=== PATIENT | female | born 1960 | race Caucasian/White ===

== ENCOUNTER 2017-06-12 08:09 | Inpatient (IN) | payer OTHER ==
[~2017-06-12] VITALS: Ht 160 cm; Wt 69.5 kg
[2017-06-12 08:09] VITALS: BP 149/95; PULSE 74; RESP 17; O2SAT 100
[~2017-06-12 08:09] MED LIST: LACT10SO60 TUBE; Melatonin PO; PROP20TA5 PO; QUET25TA73 PO; RIFA550T3 PO
--- NOTE | 2017-06-12 08:12 | ED.REPORT ---
HPI-General Illness Date of Service Jun 12, 2017 ED Provider: Markell Barbara Patient is a 57 year old female with a hx of HTN, depression, Hep C, degenerative disc disease (previously on methadone), and alcoholic cirrhosis who presents to the ED via EMS s/p her called EMS stating she was more confused suddenly over the last 30 hrs ago. Pt reports she does not feel confused. Her only complaints are being generally weak and back pain. She denies diarrhea, chest pain, abdominal pain, or any other symptoms. Per , pt has been talking to people who are not there over the last 30 hours. She has also been experiencing insomnia and reports she re-arranged the house in a disorganized manner. He also reports she has been taking her clothes off all the time without knowing she is doing so. Her took pictures to show her what she was doing and she did not recognize herself doing these things. reports and pt condones that she has been have trouble speaking including word finding and forming words. She has also been short of breath and the describes her as a "funny breather". Patient reports her daughter gave her a "sleeping pill" 4 days ago and she doesn 't know what it was. Pt reports she last took her lactulose this morning. Nursing Notes Stated Complaint: ALTERED MENTAL STATUS Chief Complaint: General Complaint Nursing Notes Reviewed: Yes Allergies: Coded Allergies: No Known Allergies (Verified Allergy, Unknown, 06/12/17) Scheduled Buspirone (Buspirone) 10 Mg Tablet 20 MG PO TID Cyclobenzaprine (Cyclobenzaprine) 10 Mg Tablet 10 MG PO TID Gabapentin (Gabapentin) 600 Mg Tablet 1,200 MG PO TID Lactulose (Lactulose) 10 Gm/15 Ml Solution 15-30 ML PO BID-TID take just enough to produce 2-3 soft BMs daily Omeprazole (Omeprazole) 20 Mg Capsule.dr 20 MG PO DAILY Pramipexole Dihydrochloride (Pramipexole Dihydrochloride) 0.25 Mg Tablet 0.125 MG PO HS Propranolol HCl (Propranolol HCl) 20 Mg Tablet 40 MG PO BID Topiramate (Topiramate) 25 Mg Tablet 25 MG PO HS Venlafaxine (Venlafaxine) 75 Mg Tablet 75 MG PO DAILY Scheduled PRN Ibuprofen (Advil) 200 Mg Capsule 1-2 EACH PO TID PRN PRN For Pain General Time Seen by MD: 08:11 Chief Complaint Other (Confusion) Hx Obtained From: Patient Arrived By: Ambulance Sudden in Onset?: Yes Onset Occurred: 1 day ago (30 hours ago) Symptom Duration: Since onset Location: : Back Recent Healthcare: Recent doctor visit Past Medical History Past Medical History Notes: Last Hospital Admission from February 27, 2016 - Mar 19, 2016 for acute alcohol wth delirium with several complications Asked ED visit 03/24/2016 plan of restless legs Past Medical History 1. History of alcohol withdrawal with acute delirium 2. History of Tuberculosis, latent (See ID Consult 02/[address] Cordero, AF[employer] sputums negative, patient does not require isolation per ID) Treatment of latent TB was not recommended due to her ETOH Abuse 3. Methadone abuse 4. Severe malnutrition 5. history of Alcoholic hepatitis 6. history of positive C. Difficile 7. Cirrhosis likely secondary to alcoholic liver disease and hepatitis C. Chronic alcoholic pancreatitis 9. Left atrial enlargement on EKG, 10. History of Hepatitis C, therapy completed. Stable 11. Hypertension 12. History of Acute kidney injury, 13. History of MRSA positive screen 14. Alcohol use disorder 15. Polysubstance use disorder 16. Tobacco use disorder, chronic 17. recurrent pnuemonia 18. depression 19. insomnia 20. Degenerate disc disease previously on methadone 21. seizures 22. Recurrent UTI Reports: GERD Past Surgical History 1. Bilateral carpal tunnel repair. 2. KEHINDE with BSO. Family History Mother with alcohol use. Family history of drug abuse. Sister with hepatitis B. Smoking History Current Every Day Smoker Social History The patient is . She has 1 child of her own (38-year-old daughter). Patient has hx of drinking one 5th of bourbon daily. The patient smokes approximately 2 packs of cigarettes daily. She has a history of drug use including IV drug and precription drug abuse. Alcohol Use: In recovery Drug Use: IV drugs Other Social History: Good social support, , Local resident Ambulatory Status Independent Review of Systems +trouble speaking Full Review of Systems Constitutional: Reports: Weakness - generalized Respiratory: Reports: Shortness of breath Cardiovascular: Denies: Chest pain GI: Denies: Abdominal pain, Diarrhea Musculoskeletal: Reports: Back pain Neurologic: Reports: Confusion Psychiatric: Reports: Hallucinations, auditory, Hallucinations, visual, Insomnia Complete sys rev & neg: except as marked. Physical Exam Vital Signs Vital Signs Date Time Temp Pulse Resp B/P Pulse Ox O2 Delivery O2 Flow Rate FiO2 06/12/17 14:43 36.5 81 18 168/85 97 Room Air 06/12/17 14:40 81 18 168/85 97 Room Air 06/12/17 11:05 68 17 114/75 95 Room Air 06/12/17 08:09 36.5 74 17 149/95 100 Initial VS: Reviewed, Vital signs abnormal Head / Eyes: Atraumatic, Normocephalic Neck: Full range of motion Skin: Warm, Dry General/Constitutional: Awake, Alert, No acute distress Respiratory / Chest: Atraumatic, Breath sounds NL, Breath sounds = bilat, No respiratory distress Cardiovascular: Heart rate NL, Regular rhythm, Heart sounds NL Abdomen: Atraumatic, Soft, Non-tender, BS normoactive Back: No CVA tenderness Lumbar paraspinal muscle spasm that is worse on the right. Lower Extremity / Pelvis / MS: No edema Neurologic: Oriented X3, Speech NL Interpretation & Diagnostics Lab Results Interpretation Result Diagram: 06/12/17 1210 06/12/17 1210 Test 06/12/17 09:30 06/12/17 12:10 06/12/17 12:50 Urine Color Straw (YELLOW) Urine Appearance Hazy (CLEAR,HAZY) Urine pH 7.0 (5.0-8.0) Urine Specific [place] 1.005 (1.003-1.035) Urine Protein Negativemg/dL (NEG,TRACE) Urine Glucose (UA) Negativemg/dL (NEGATIVE) Urine Ketones Negativemg/dL (NEGATIVE) Urine Occult Blood Negative (NEGATIVE) Urine Nitrite Positive (NEGATIVE) Urine Bilirubin Negative (NEGATIVE) Urine Urobilinogen Normalmg/dL (NORMAL) Urine Leukocyte Esterase Moderate (NEGATIVE) Urine RBC 0-2/hpf (0-2) Urine WBC 6-10/hpf (0-5) Urine Epithelial Cells Occasional/hpf (NONE-MOD) Urine Crystals None seen (NONE SEEN) Urine Bacteria Many/hpf (NONE-FEW) Urine Hyaline Casts None/lpf (NONE) Urine Granular Casts None seen (NONE SEEN) Urine Waxy Casts None seen (NONE SEEN) Urine Red Blood Cell Casts None seen (NONE SEEN) Urine White Blood Cell Casts None seen (NONE SEEN) Urine Mucus None seen (None Seen) Urine Trichomonas None seen (NONE SEEN) Urine Yeast None (NONE SEEN) Urinalysis Comment None Urine Culture Reflexed Indicated White Blood Count 6.7th/mm3 (3.8-10.1) Red Blood Count 4.34mil/mm3 (3.90-5.20) Hemoglobin 14.2g/dL (12.0-15.6) Hematocrit 41.7% (35.0-46.0) Mean Corpuscular Volume 96.1fL (81-100) Mean Corpuscular Hemoglobin 32.7pg (27.0-35.0) Mean Corpuscular Hemoglobin Concent 34.1% (32.0-37.0) Red Cell Distribution Width 14.0% (12.3-15.4) Platelet Count 139bil/L (150-400) Neutrophils (%) (Auto) 48.7% (40-74) Lymphocytes (%) (Auto) 30.8% (14-46) Monocytes (%) (Auto) 11.9% (4-12) Eosinophils (%) (Auto) 7.0% (0-5) Basophils (%) (Auto) 1.0% (0-3) Sodium Level 145mEq/L (134-144) Potassium Level 4.0mEq/L (3.5-5.2) Chloride Level 109mEq/L (97-108) Carbon Dioxide Level 18mmol/L (18-29) Blood Urea Nitrogen 14mg/dL (6-24) Creatinine 0.83mg/dL (0.57-1.00) Estimat Glomerular Filtration Rate 101mL/min (>59) Glucose Level 105mg/dL (60-99) Calcium Level 9.7mg/dL (8.5-10.1) Total Bilirubin 1.0mg/dL (0.0-1.2) Aspartate Amino Transf (AST/SGOT) 28U/L (0-50) Alanine Aminotransferase (ALT/SGPT) 18U/L (0-32) Alkaline Phosphatase 95U/L (25-150) Troponin T 0.010ug/L (0.0-0.011) Total Protein 7.5g/dL (6.4-8.4) Albumin 4.4g/dL (3.4-5.0) Procalcitonin 0.03ng/mL (0.00-0.08) Ammonia 241ug/dL (18-53) ECG Interpretation ECG Interpretation: Sinus rate 68 no ischemia Time: 08:55 Interpreted by: ED physician X-Ray Chest Interpretation Chest Xray Interpretation: IMPRESSION: No acute disease. Dictated by: Oli Salgado M.D. on 06/12/2017 at 8:16 Approved by: Oli Salgado M.D. on 06/12/2017 at 8:17 View: Portable, 1 view Interpretation / Wet Read by: Interpret - Radiologist CT Head Interpretation IMPRESSION: No source of change in mental status is found. The study appears stable over time from February of last year. Dictated by: Mohinder Granger M.D. on 06/12/2017 at 9:24 Approved by: Mohinder Granger M.D. on 06/12/2017 at 9:57 Study: Head CT no contrast Interpretation / Wet Read by: Interpret - Radiologist Re-Eval/Medical Decision Med Decision/Clinical Course 57-year-old woman with history of hepatic encephalopathy. Not currently fully compliant with medication regimen at home. Her notes that 30 hours ago (very specifically noted time of first on mental status events) she has been acutely altered. Initially he thought that her daughter had given her some additional recreational medication. She was acutely confused, delirious. Seemed to clear for a brief period of time and then has worsened again. Given the exact timing of onset CT scan of the brain was done to make sure that there was no evidence of a stroke. There is no clinical evidence to support stroke. CT scan was unremarkable. Labs metabolic findings certainly can explain the altered mental status. Have recommended that she be admitted for lactulose and observation. In the past she's had such severe diarrhea from her lactulose that she hasn't been able to eat and drink and ended up with significant dehydration. Patient believes that she is well enough to go home and states that "I promise I will take my medications". points out that she has not been taking her medication which is how she got to the situation in the first place and is concerned with her ability to care for self and safety at home. He is explained to her that, in light of recommendation for admission to the hospital, he will not be taking her home at this time. Time of Eval: 13:50 Re-Evaluation/Progress Note: Discussed lab and imaging results. Discussed plan for admission. Patient does not want to stay but with described acute altered mental status changes and ammonia at 245, whe is not competent at this time to make that decision. agrees to and encourages the admission. He understands and agrees with plan. All questions addressed at this time. Consultation : Referral / Consult Name: Junito Crawley Consulted With: Hospitalist Call Returned at: 14:45 Oil Heater Installer: Will see patient, Agrees with eval, Agrees with plan, Accepts admit Note: Discussed pt's case. Accepts admit. Counseled Regarding: Diagnosis, Lab results, Need for admission Discharge & Departure Primary Impression: Acute hepatic encephalopathy Additional Impressions: Bladder infection Altered mental status Altered mental status type: unspecified Qualified Code: R41.82 - Altered mental status, unspecified Disposition: ADMITTED TO HOSPITAL Discharge Condition All VS Reviewed: Yes Condition: Stable Referrals: Mata Maier Attestation Portions of this note were transcribed by Hong Owens. I, Dr. Guillaume personally performed the history, physical exam and medical decision-making; I reviewed and confirmed the accuracy of the information in the transcribed note. Signed by: Dylan Fleming, 06/12/17 copies to: Mata Maier Shawna L MD Jun 12, 2017 08:11 HONG OWENS Jun 12, 2017 08:39
--- NOTE | 2017-06-12 09:19 | DRSVH ---
PROCEDURE: X-RAY CHEST ONE VIEW, PORTABLE ([id number]) INDICATIONS: altered mental status TECHNIQUE: One view of the chest was acquired. COMPARISON: [facility], CR, XR CHEST 1VW (PORTABLE), 03/17/2016, 0:52. FINDINGS: Surgical changes and devices: Surgical clips projecting in the left breast Lungs and pleura: No pleural effusions or pneumothorax. Lungs are clear. Mediastinum: Mediastinal contours appear normal. Heart size is normal. Bones and chest wall: No suspicious bony lesions. Overlying soft tissues appear unremarkable. Specialty Transformer Assembler codi left rib fractures IMPRESSION: No acute disease. Dictated by: Oli Salgado M.D. on 06/12/2017 at 8:16 Approved by: Oli Salgado M.D. on 06/12/2017 at 8:17
--- NOTE | 2017-06-12 09:59 | DRSVH ---
PROCEDURE: CT BRAIN WITHOUT CONTRAST ([id number]) INDICATIONS: acute change in mental status 30 hrs ago TECHNIQUE: Noncontrast 4.5 mm thick angled axial sections acquired from the foramen magnum to the vertex, with c oronal reformats. COMPARISON: [facility], CT, CT BRAIN WO CON, 03/02/2016, 9:56. FINDINGS: Image quality: Excellent. CSF spaces: Basal cisterns are patent. No extra-axial fluid collections. Ventricles are normal in size and shape. Brain: No midline shift. No intracranial masses or hemorrhage. Bui-white matter interface is norm al. Skull and face: Calvarium and visualized facial bones are intact, without suspicious lesions. Sinuses: Visualized sinuses and mastoids are clear. IMPRESSION: No source of change in mental status is found. The study appears stable over time from J une of last year. Dictated by: Mohinder Granger M.D. on 06/12/2017 at 9:24 Approved by: Mohinder Granger M.D. on 06/12/2017 at 9:57
[2017-06-12 10:32] LABS: APPEARANCE,URINE HAZY (CLEAR,HAZY); COLOR,URINE STRAW (YELLOW); OCCULT BLOOD,URINE NEGATIVE (NEGATIVE); UROBILINOGEN,URINE NORMAL (NORMAL)
[2017-06-12 11:05] VITALS: BP 114/75; PULSE 68; RESP 17; O2SAT 95
[2017-06-12 12:47] LABS: MONOCYTES % (AUTO) 11.9 % (4-12); Mean Corpuscular Hemoglobin 32.7 pg (27.0-35.0); Mean Corpuscular Volume 96.1 fL (81-100); NEUTROPHILS % (AUTO) 48.7 % (40-74); Platelet Count 139 bil/L (150-400)
[2017-06-12 12:50] LABS: TROPONIN T 0.01 ug/L (0.0-0.011)
[2017-06-12] MEDS ORDERED: cefTRIAXone Inj 2,000 MG in Dextrose 5% Minibag Plus 50 ML IV ONE (13:50)
[2017-06-12] MEDS ORDERED: Lactulose 20 Gm/30 mL 30 mL Syrup PO ONE (13:50)
[2017-06-12 14:40] VITALS: BP 168/85; PULSE 81; RESP 18; O2SAT 97
[2017-06-12] MEDS ORDERED: BUSP10TA2 PO (14:55)
[2017-06-12] MEDS ORDERED: OMEP20CA11 PO (14:55)
[2017-06-12] MEDS ORDERED: PRAM0.256 PO (15:00)
[2017-06-12] MEDS ORDERED: CYCL10TA9 PO (15:00)
[2017-06-12] MEDS ORDERED: GABA600T2 PO (15:00)
[2017-06-12] MEDS ORDERED: VENL75TA3 PO (15:00)
[2017-06-12] MEDS ORDERED: TOPI-59 PO (15:00)
[2017-06-12] MEDS ORDERED: LACT10SO PO (15:06)
[2017-06-12] MEDS ORDERED: IBUP200C11 PO (15:07)
[2017-06-12] MEDS ORDERED: 0.9% Sodium Chloride 1,000 ML IV SCH (15:13)
[2017-06-12] MEDS ORDERED: Polyethylene Glycol (PEG) 17 Gm Powder PO PRN (15:15)
[2017-06-12] MEDS ORDERED: Ondansetron 2 mg/mL 2 mL Inj IVPUSH PRN (15:15)
[2017-06-12] MEDS ORDERED: Alum-Mag Hydrox-Simeth 30 mL Suspension PO PRN (15:15)
[2017-06-12] MEDS ORDERED: Lactulose 20 Gm/30 mL 30 mL Syrup PO SCH (15:20)
[2017-06-12 15:33] VITALS: BP 154/71; PULSE 81; RESP 16; O2SAT 97
--- NOTE | 2017-06-12 16:00 | NUR ---
Admit to [facility] Pt arrived on [facility] at 1520 hrs from the ED. Alert and oriented x 3. Pain at 6/10 in her back (chronic) and hip. PIV in left hand red and tender, but patent. Pt is hard IV start due to prior IV drug use. All personal items sent with pt. Pt is current cigarette smoker. Applied nicotine patch. Administered IV antibiotic and lactulose (for elevated ammonia level). Spouse at the bedside. Care continues.
[2017-06-12] MEDS: cefTRIAXone Inj 2,000 MG in Dextrose 5% Minibag Plus 50 ML IV SCH (16:27)
[2017-06-12] MEDS: Heparin 5,000 Unit/mL Inj SUBQ SCH (16:37)
--- NOTE | 2017-06-12 17:45 | PCM.HPMED ---
Subjective Date of Service Jun 12, 2017 Primary Provider: Admitting Physician: Junito Crawley Primary Care Physician: Mata Maier DO Attending Physician: Junito Crawley Admit Status: From the Emergency Department, Admit to Red Team Chief Complaint: Altered mental status History of Present Illness: Ms. Chambers is a 57-year-old female with past medical history of hypertension , depression and hepatitis C degenerative disc disease (previously on methadone) , and alcoholic cirrhosis (sober 1 year) who presented to the ED via EMS after her called 911 secondary to behavioral abnormalities and mental status changes 1 day. Present during time of interview is patient's Dominick during interview. Per patient she states she knows that she has been doing a lot of strange things because she has been told that she has no specific recollection of these events. Per patient's and patient has not been taking her lactulose, he does not know why as she is the one who manages her medications at baseline. Over the last 30 hours she has had a number of behavioral episodes which have included microwaving silverware, grabbing clothing and going for the door as if to leave/move out of the home. She has been disoriented in her own home often confusing where doors and windows are. She has been seeing things that are not there and having conversations with people that were not in the room lasting as long as 20 minutes. Patient's states these are normal conversations and she is not having any difficulty with speech or thought process only that she is having these conversations with nonexistent people like her grandchildren. He does report occasional difficulty with patient in finding the right words and forming them appropriately. She is also been rearranging this furniture and has developed shaking and difficulty walking. Patient reports her daughter gave her a "sleeping pill" 4 days ago and she doesn't know what it was. She is followed by Dr. Norton of neurology. Patient states no specific complaints, denies headache /visual changes/dizziness, chest pain, abdominal pain, numbness or tingling in her extremities. She does state that she has been somewhat short of breath though not at time of interview. She also states that she has gained a lot of weight since quitting drinking one year ago approximately 50 pounds. In the ED CT scan showed no source of change in mental status is found. The study appears stable over time from February of last year. Chest x-ray showed no acute disease, EKG showed heart rate 68 sinus rhythm. Sodium 145, Ammonia 241 Review of Systems: A comprehensive review of systems was conducted with the patient and found to be negative except as above in the history of present illness. Allergies Coded Allergies: No Known Allergies (Verified Allergy, Unknown, 06/12/17) Home Medications Scheduled Buspirone (Buspirone) 10 Mg Tablet 20 MG PO TID Cyclobenzaprine (Cyclobenzaprine) 10 Mg Tablet 10 MG PO TID Gabapentin (Gabapentin) 600 Mg Tablet 1,200 MG PO TID Lactulose (Lactulose) 10 Gm/15 Ml Solution 15-30 ML PO BID-TID take just enough to produce 2-3 soft BMs daily Omeprazole (Omeprazole) 20 Mg Capsule.dr 20 MG PO DAILY Pramipexole Dihydrochloride (Pramipexole Dihydrochloride) 0.25 Mg Tablet 0.125 MG PO HS Propranolol HCl (Propranolol HCl) 20 Mg Tablet 40 MG PO BID Topiramate (Topiramate) 25 Mg Tablet 25 MG PO HS Venlafaxine (Venlafaxine) 75 Mg Tablet 75 MG PO DAILY Scheduled PRN Ibuprofen (Advil) 200 Mg Capsule 1-2 EACH PO TID PRN PRN For Pain Exam Vital Signs & I/O Vital Sign- Last 8 Hours Date Time Temp Pulse Resp B/P Pulse Ox O2 Delivery O2 Flow Rate FiO2 06/13/17 17:28 36.7 93 20 130/79 94 Room Air 06/13/17 12:02 36.5 18 155/88 98 Room Air Intake and Output- Last 8 Hour 06/13/17 Cumulative From/Thru 07:00 06/12/17 09:42 - 06/13/17 05:49 Intake Total 672 ml 1237 ml Output Total 200 ml Balance 672 ml 1037 ml Intake Oral 672 ml 872 ml IV Total 365 ml Output Urine Total 200 ml # Voids 5 6 # Bowel Movements 15 16 Lab & Micro Results Laboratory Tests Test 06/12/17 20:30 06/13/17 05:33 Ammonia 308ug/dL (18-53) 184ug/dL (18-53) White Blood Count 7.8th/mm3 (3.8-10.1) Red Blood Count 4.29mil/mm3 (3.90-5.20) Hemoglobin 14.0g/dL (12.0-15.6) Hematocrit 40.8% (35.0-46.0) Mean Corpuscular Volume 95.1fL (81-100) Mean Corpuscular Hemoglobin 32.6pg (27.0-35.0) Mean Corpuscular Hemoglobin Concent 34.3% (32.0-37.0) Red Cell Distribution Width 13.7% (12.3-15.4) Platelet Count 145bil/L (150-400) Prothrombin Time 10.7sec (8.1-12.5) Prothromb Time International Ratio 1.00ratio Activated Partial Thromboplast Time 26.8sec (22.8-33.0) Sodium Level 145mEq/L (134-144) Potassium Level 3.7mEq/L (3.5-5.2) Chloride Level 112mEq/L (97-108) Carbon Dioxide Level 16mmol/L (18-29) Blood Urea Nitrogen 16mg/dL (6-24) Creatinine 0.72mg/dL (0.57-1.00) Estimat Glomerular Filtration Rate 119mL/min (>59) Glucose Level 138mg/dL (60-99) Calcium Level 9.9mg/dL (8.5-10.1) Magnesium Level 2.1mg/dL (1.6-2.6) Thyroid Stimulating Hormone (TSH) 5.900uIU/mL (0.450-4.500) Microbiology 06/12/17 Urine Culture - Preliminary, Resulted Result Diagram: 06/13/17 0533 06/13/17 0533 Review of Systems: Constitutional: Negative, except as otherwise mentioned in the history above. Ophthalmologic: Negative, except as otherwise mentioned in the history above. Cardiovascular: Negative, except as otherwise mentioned in the history above. Respiratory: Negative, except as otherwise mentioned in the history above. Gastrointestinal: Negative, except as otherwise mentioned in the history above. Genitourinary: Negative, except as otherwise mentioned in the history above. Musculoskeletal: Negative, except as otherwise mentioned in the history above. Neurological: Negative, except as otherwise mentioned in the history above. Psychiatric: Negative, except as otherwise mentioned in the history above. Hematologic/Lymphatic: Negative, except as otherwise mentioned in the history above. Allergic/Immunologic: Negative, except as otherwise mentioned in the history above. PMH 1. History of alcohol withdrawal with acute delirium 2. History of Tuberculosis, latent (See ID Consult 02/[address] Cordero, AFB sputums negative, patient does not require isolation per ID) Treatment of latent TB was not recommended due to her ETOH Abuse 3. Methadone abuse 4. Severe malnutrition 5. history of Alcoholic hepatitis 6. history of positive C. Difficile 7. Cirrhosis likely secondary to alcoholic liver disease and hepatitis C. Chronic alcoholic pancreatitis 9. Left atrial enlargement on EKG, 10. History of Hepatitis C, therapy completed. Stable 11. Hypertension 12. History of Acute kidney injury, 13. History of MRSA positive screen 14. Alcohol use disorder 15. Polysubstance use disorder 16. Tobacco use disorder, chronic 17. recurrent pnuemonia 18. depression 19. insomnia 20. Degenerate disc disease previously on methadone 21. seizures 22. Recurrent UTI Reports: GERD Surgical History 1. Bilateral carpal tunnel repair. 2. KEHINDE with BSO. Family History Mother with alcohol use. Family history of drug abuse. Sister with hepatitis B. Social History Hx Alcohol Use: Yes (in recovery) Hx Substance Use: No Hx Tobacco Use: Yes Smoking Status: Current Every Day Smoker Living Arrangement: with Family Additional Information The patient is . She has 1 child of her own (38-year-old daughter). Patient has hx of drinking one 5th of bourbon daily. The patient smokes approximately 2 packs of cigarettes daily. She has a history of drug use including IV drug and precription drug abuse. Exam Vital Signs Vital Sign - Last Date Time Temp Pulse Resp B/P Pulse Ox O2 Delivery O2 Flow Rate FiO2 06/12/17 15:33 36.8 81 16 154/71 97 Room Air Exam General: Awake and alert sitting up in hospital bed in no acute distress, well- developed, well-nourished HEENT: Normocephalic, atraumatic. External ears without defect. Pupils equal, round, and reactive to light and accommodation. Anicteric sclerae, moist conjunctivae, and no lid lag. Oropharynx free of erythema and cobble stoning with moist mucosa. Neck: Supple with full range of motion. No jugular venous distension. No bruits. Cardiovascular: Regular rate and rhythm with no murmurs, rubs, or gallops appreciated Pulmonary: Clear to auscultation bilaterally with no crackles, wheezes, or rhonchi. Normal respiratory effort with no use of accessory muscles. Abdomen: Bowel tones present. Soft, nontender, nondistended. Extremities: No clubbing, cyanosis, edema Skin: Normal temperature, turgor, and texture Neurological: Cranial nerves grossly intact. Lab and Diagnostics Result Diagram: 06/13/1753206/13/17532 X-Rays, CTs and MRIs . X-RAY CHEST ONE VIEW, PORTABLE IMPRESSION: No acute disease. Dictated by: Oli Salgado M.D. on 06/12/2017 CT BRAIN WITHOUT CONTRAST IMPRESSION: No source of change in mental status is found. The study appears stable over time from February of last year. Dictated by: Mohinder Granger M.D. on 06/12/2017 12-lead ECG EKG showed heart rate of 68, sinus rhythm and probable left atrial enlargement Assessment & Plan Ms. Chambers is a 57-year-old female with past medical history of hypertension , depression and hepatitis C degenerative disc disease (previously on methadone) , and alcoholic cirrhosis (sober 1 year) admitted for acute mental status change Altered mental status, visit on admission. Ongoing Differential diagnosis includes:Hepatic encephalopathy/elevated ammonia levels due to noncompliance with home medication lactulose, UTI, Wernicke-Korsakoff syndrome Ammonia level 241 on admit Continue lactulose Antibiotics as below Appropriate labs pending Continue to monitor Urinary tract infection. Present admission. Ongoing Urine showed 6-10 WBCs, moderate leukocyte esterase positive nitrite. Cultures pending Ceftriaxone initiated an ED Continue ceftriaxone Continue to monitor Noncompliance with medication. Present on admission. Ongoing Patient's presented with multiple medication bottles many of which were empty, unknown patient compliance with medications Continue home venlafaxine Hold home topiramate, cyclobenzaprine as psychosis is a noted adverse reaction Hold home pramipexole as hallucinations are a noted adverse reaction Hold home gabapentin as this medication is known to have a side effect of altered mental status Hold home buspirone secondary to adverse reactions We will restart home medications as appropriate once acute psychosis resolves Consider psychiatry consult History of Tuberculosis, latent (See ID Consult 02/[address] Cordero, AFB sputums negative, patient does not require isolation per ID) Treatment of latent TB was not recommended due to her ETOH Abuse Consider initiation of latent TB treatment as patient has been sober 1 year Hypernatremia. Present on admission. Ongoing Maintenance IV fluids Patient Status: Patient was admitted under inpatient status with expected length of stay greater than two midnights due to severity of presenting symptoms , risk of adverse event, and complexity of treatment plan. GI Prophylaxis: H2 juan antonio VTE Prophylaxis: Sub-Q Heparin (Unfractionated) Resuscitation Status: CPR: Attempt Resuscitation Attending Statement The patient was seen and examined together with Dr. RICHARDSON on 06/12/17 and I agree with the history, exam and plan as outlined in the note above. MELVIN RICHARDSON DO Jun 12, 2017 17:45 Junito Crawley Jun 13, 2017 19:29
[2017-06-12] MEDS ORDERED: IBUPROFEN PO PRN (18:05)
[2017-06-12] MEDS ORDERED: Famotidine Inj 20 MG in IV Premix 1 EACH IV SCH (20:30)
[2017-06-12 20:34] VITALS: BP 157/95; PULSE 82; RESP 18; O2SAT 97
[2017-06-12] MEDS: Lactulose 20 Gm/30 mL 30 mL Syrup PO SCH (20:59)
[2017-06-13] VITALS (7 sets, daily range): BP systolic 130–181; BP diastolic 79–104; PULSE 86–97; RESP 16–20; O2SAT 94–99
[2017-06-13] MEDS: Heparin 5,000 Unit/mL Inj SUBQ SCH ×3 (00:36→16:01)
--- NOTE | 2017-06-13 03:37 | NUR ---
Skin/ Stool Pt. has had several stools throughout the shift after taking lactulose. Barrier cream wipes offered, as pt. reported buttocks becoming sore after BMs. Pt. still has some confusion here and there. Will continue to monitor.
[2017-06-13 05:50] LABS: Mean Corpuscular Hemoglobin 32.6 pg (27.0-35.0); Mean Corpuscular Volume 95.1 fL (81-100)
[2017-06-13 06:42] LABS: Magnesium 2.1 mg/dL (1.6-2.6)
[2017-06-13] MEDS ORDERED: Dextrose 5% 1,000 ML IV ONE (07:45)
[2017-06-13] MEDS: Pantoprazole 40 mg ER24 Tablet PO SCH (08:03)
[2017-06-13] MEDS: Lactulose 20 Gm/30 mL 30 mL Syrup PO SCH (08:05)
[2017-06-13] MEDS: Venlafaxine XR 75 mg ER24 Capsule PO SCH (08:05)
--- NOTE | 2017-06-13 09:22 | PCM.PNMED ---
Subjective Date of Service Jun 13, 2017 Subjective She denies any pain or discomfort but notes that patient is very confused and delirious this morning Exam Vital Signs Vital Sign - Last Date Time Temp Pulse Resp B/P Pulse Ox O2 Delivery O2 Flow Rate FiO2 06/13/17 08:04 174/86 06/13/17 08:03 36.6 89 18 99 Room Air Intake and Output 06/12/17 06/12/17 06/13/17 Cumulative From/Thru 15:00 23:00 07:00 06/12/17 09:42 - 06/13/17 05:49 Intake Total 50 ml 515 ml 672 ml 1237 ml Output Total 200 ml 200 ml Balance 50 ml 315 ml 672 ml 1037 ml Intake Oral 200 ml 672 ml 872 ml IV Total 50 ml 315 ml 365 ml Output Urine Total 200 ml 200 ml # Voids 1 5 6 # Bowel Movements 1 15 16 General: Alert, Cooperative, No Acute Distress, Other (oriented to person only. has pressured speech and seems more confused than yesterday afternoon) Head: Normal Eyes: PERRLA, EOMI, Scleral Anicteric Nose: Mucous Membr Moist/Gambell Mouth: Mucous Membr Moist/Gambell Neck: Supple Chest & Lungs: Chest Wall Normal, Clear to auscultation & percussion Cardiovascular: Regular Rate/Rhythm Pulses: NL carotid, radial, femoral, DP, PT Abdomen: Non-tender, Non-distended, Normoactive bowel tones, Soft Extremities: No cyanosis/clubbing/edma bilat Skin: Other (no sig ulcer/rash) Neurological: Grossly Neurologically Intact, Cranial Nerves 2-12 Intact, Normal Speech IVs and Medications Medications Reviewed: Medications were reviewed in detail Lab and Diagnostics Result Diagram: 06/13/1753206/13/17532 X-Rays, CTs and MRIs . X-RAY CHEST ONE VIEW, PORTABLE IMPRESSION: No acute disease. Dictated by: Oli Salgado M.D. on 06/12/2017 CT BRAIN WITHOUT CONTRAST IMPRESSION: No source of change in mental status is found. The study appears stable over time from February of last year. Dictated by: Mohinder Granger M.D. on 06/12/2017 12-lead ECG EKG showed heart rate of 68, sinus rhythm and probable left atrial enlargement Assessment & Plan 57-year-old female with past medical history of hypertension, depression and hepatitis C degenerative disc disease (previously on methadone), and alcoholic cirrhosis (sober 1 year) admitted for acute mental status change # Acute toxic and metabolic encephalopathy present on admission, ongoing - Suspected combination of hepatic encephalopathy (due to noncompliance with home medication lactulose) as well as acute UTI - Other possible etiologies such as delirium, psychiatric disorder or Wernicke- Korsakoff type picture not completely ruled out yet. - Continue lactulose - Antibiotics as below - If delirious and psychotic state still persist after treatment of UTI and lowering of ammonia level consider further psych consult. - Patient's /DPOA says it is OK to use sedatives or restraints if needed to keep patient calm or prevent her from trying to leave AMA # Acute urinary tract infection. Present admission. Ongoing - Continue Ceftriaxone started on 06/12 - Followup pending culture results. # Noncompliance with medication. Present on admission. Ongoing - Patient's presented with multiple medication bottles many of which were empty, unknown patient taking too many or too little of medications. - Continue home venlafaxine - Hold home Topiramate and Cyclobenzaprine as psychosis is a noted adverse reaction - Hold home Pramipexole as hallucinations are a noted adverse reaction - Hold home Gabapentin as this medication is known to have a side effect of altered mental status - Hold home Buspirone secondary to adverse reactions - Consider resuming above home medications in the next 24 hours or so if acute psychosis resolves # History of Tuberculosis, latent (See ID Consult 02/[address] Cordero, AFB sputums negative, patient does not require isolation per ID) Treatment of latent TB was not recommended due to her ETOH Abuse - Consider initiation of latent TB treatment after this acute episode as patient has been sober 1 year # Acute Hypernatremia and hyperchloremia. Present on admission. Ongoing - Change IVF to D5W and followup repeat labs in AM # Elevated TSH without any prior recorded history of hypothyroidism - ? if acute phase reaction - Recheck TSH and full thyroid panel Dispo: 2-3 days GI Prophylaxis: H2 juan antonio VTE Prophylaxis: Sub-Q Heparin (Unfractionated) VTE Mechanical Devices: Intermittant Pneumatic CD Resuscitation Status: CPR: Attempt Resuscitation Junito Crawley Jun 13, 2017 09:22
--- NOTE | 2017-06-13 09:29 | PCM.ADCARE ---
Advance Care Planning Note Purpose of Encounter: Discussion of goals of care given history of liver disease and altered mental status Parties in Attendance: Patient and her (DPOA) Decisional Capacity: patient is not decisional given acute psychosis/delirium/encephalopathy Subjective: currently patient is comfortable and denies any pain or discomfort Objective: pressured speech and somewhat nonsensical speech. Lungs:CTA bilat CV: RRR Abd: Soft, NT, ND, +BS Goals of Care Determinations: DPOA's goal is for patient to return to her mental status prior to this hospitalization and hopefully return home. Plan: Continue with current course of antibiotics and treatment of acute hepatic encephalopathy. If does not improve with these measures DPOA is OK with seeking further psychiatric consult CODE STATUS: Full code Time Spent Adv.Care Plannin min Junito Crawley Jun 13, 2017 09:29
--- NOTE | 2017-06-13 10:16 | NUR ---
Swallow evaluation cancelled per MD. Per RN pt is tolerating general diet, no concerns re: swallowing; discussed with Dr. Crawley.
--- NOTE | 2017-06-13 11:45 | NUR ---
Evaluation completed. Please go to "Notes" then click on "Assessments and Notes" (bottom left corner of screen). Then select appropriate discipline tab on top of screen.
[2017-06-13] MEDS: cefTRIAXone Inj 2,000 MG in Dextrose 5% Minibag Plus 50 ML IV SCH (16:01)
--- NOTE | 2017-06-13 16:10 | NUR ---
GI/Mentation Pt has had multiple BMs throughout day shift. MD notified. Lactulose schedule changed. Titrate lactulose to three BMs per day. Afternoon dose not given. Will continue to monitor. Pt continues to be alert and oriented, but occasionally will see "water dripping from the ceiling." Pt re-orients quickly. at bedside to help with care. Hourly rounding and care continues.
--- NOTE | 2017-06-13 16:15 | NUR ---
Social Work: Initial Assessment/Multidisciplinary Rounds D: EMR reviewed. Please see Initial Assessment linked to this note for more information. Pt is a 57 year old female admitted [place] for AMS, UTI, Hepatic Encephalopathy, acute psychosis per H&P. Pt's insurance is [employer]. PCP is Mata Maier MD. Pt discussed in multidisciplinary rounds, pt may receive psychiatric consult if psychosis does not resolve with medical intervention. Pt has history of etoh, methadone, and IVDU. SW met with pt and at bedside to conduct initial assessment. Pt was alert but confused, thoughts were not linear. Pt was able to answer most questions by herself and clarified information as needed. SW explained role and wrote phone number on white board. SW provided [facility] Discharge Planning Checklist and encouraged pt to contact SW for any discharge planning questions. Pt lives at home with her spouse in [place]. Pt is independent with all ADLs at baseline. Pt uses no DME at baseline. Pt does not drive. Pt has no HH or SNF history. Pt has no LTC or VA benefits. Pt has no DPOA on file, SW requested copy of pt's DPOA. Per last admission in 2016, pt was referred to [facility] for an intake for treatment. Pt and report that they did not attend this intake appointment. However, they both report being sober from the day of discharge in 2016 of all substances, including methadone, illicit substances, and etoh. Pt did not access CD services to achieve sobriety. Pt does not access MH services at this time, and pt expressed interest in these services. SW to generate list of contracted MH practitioners with pt's insurance. Outpt MH information was provided to pt after last admission as well. Pt is likely to d/c home with to transport via POV. SW will continue to follow. A: Pt who is independent at baseline and has the capacity for self-care. P: Pt anticipated to discharge home with to transport via POV. JANICE will generate list of outpt MH clinicians contracted with [facility]. SW will continue to follow for needs until time of discharge. DARELL Alvares Addendum: 06/13/17 at 1622 by GUANACO MACEDO SS Amended: Links added. Addendum: 06/13/17 at 1701 by GUANACO ROMAN Provided list of outpt providers contracted with [facility] to pt at bedside. Abiola Macedo, [employer]
[2017-06-14] MEDS: Heparin 5,000 Unit/mL Inj SUBQ SCH ×2 (00:02→09:03)
--- NOTE | 2017-06-14 04:33 | NUR ---
Activity Pt. has been sleeping for most of the shift. was happy with this, as reports pt. has barely slept in the last 24 hours. Pt. is experiencing less BMs. Will continue to monitor.
[2017-06-14 05:06] VITALS: BP 149/71; PULSE 83; RESP 16; O2SAT 96
[2017-06-14 08:52] VITALS: BP 134/87; PULSE 82; RESP 16; O2SAT 98
[2017-06-14] MEDS: Venlafaxine XR 75 mg ER24 Capsule PO SCH (09:00)
[2017-06-14] MEDS: Pantoprazole 40 mg ER24 Tablet PO SCH (09:00)
--- NOTE | 2017-06-14 11:54 | PCM.DIMED ---
Discharge Instructions Date of Service Jun 14, 2017 Dates of Hospitalization Jun 12, 2017 at 14:59 Discharge Diagnosis Discharge Diagnosis # Acute toxic and metabolic encephalopathy present on admission, Resolved - Suspected combination of hepatic encephalopathy (due to noncompliance with home medication lactulose) as well as acute UTI # Acute urinary tract infection. Present admission. Ongoing # History of Tuberculosis, latent (See ID Consult 02/[address] Cordero, AFB sputums negative, patient does not require isolation per ID) Treatment of latent TB was not recommended due to her ETOH Abuse # Elevated TSH without any prior recorded history of hypothyroidism Diet Discharge Diet: Low fat, Low Sodium Activity Discharge Activity: Limited until seen by PCP Call your provider Call your provider for: Fever or Chills, Shortness of breath, Bleeding, Chest pain, Vomitting, Excessive diarrhea, Weakness (unilateral) Patient Instructions Patient Instructions You were hospitalized due to acute confusion. Encephalopathy seems to be mainly due to hepatic encephalopathy. UTI also contributing. Please take lactulose 15-30 ML PO twice daily to 3 times a daily ,take just enough to produce 2-3 soft bowel movements daily . Titrate the dose of lactulose to 2-3 bowel movements. Also take Keflex for 3 more days for UTI. Please follow-up with PCP in 1-2 weeks. Continue all other medications as usual.You also had mildly abnormal thyroid function test.TSH 5.9. Needs to be rechecked in 2-3 weeks with PCP. Follow-up Provider: Lam Bronson MD Follow-up with PCP in: 1 week Alberto Granados MD Jun 14, 2017 11:54
[2017-06-14] MEDS ORDERED: CEPH500C PO (12:02)
--- NOTE | 2017-06-14 12:31 | NUR ---
DISCHARGE Patient discharge at 1230 left with who will drive her home. Patient denies pain, nausea, and shortness of breath. Medications and new Rx reviewed and patient verbalized understanding. Care notes on Lactulose, and Keflex provided, teaching don on medications, followup appointment gone over with patient. IV catheter removed intact, personal belongings accounted for, and patient told to call with any concerns or questions.
--- NOTE | 2017-06-14 13:07 | NUR ---
Social Work: Discharge/Multidisciplinary Rounds D: EMR reviewed. Pt is on day 2 of hospitalization. Pt discussed in multidisciplinary rounds and is medically stable for discharge home today via POV. SW discussed pt's hx with CD and MH services. SW provided pt with MH resources. Per MD, no other SW needs identified for discharge. A: Pt who is independent at baseline and has the capacity for self-care. P: Pt to discharge home with to transport via POV. Pt and spouse provided with MH resources. No other needs identified, no MD orders received. DARELL Villeda
[2017-06-14] MEDS ORDERED: Lactulose 20 Gm/30 mL 30 mL Syrup PO SCH (14:30)
--- NOTE | 2017-06-14 16:33 | PCM.DC.MED ---
Discharge Summary Date of Service Jun 14, 2017 Dates of Hospitalization Date of Hospital Admission Jun 12, 2017 at 14:59 Date of Discharge: Jun 14, 2017 Providers: Admitting Physician: Junito Crawley Primary Care Physician: Mata Maier DO Attending Physician: Junito Crawley Diagnosis at Time of Discharge Diagnosis at Time of Discharge # Acute toxic and metabolic encephalopathy present on admission, Resolved - Suspected combination of hepatic encephalopathy (due to noncompliance with home medication lactulose) as well as acute UTI # Acute urinary tract infection. Present admission. Ongoing # History of Tuberculosis, latent (See ID Consult 02/[address] Cordero, AF[employer] sputums negative, patient does not require isolation per ID) Treatment of latent TB was not recommended due to her ETOH Abuse # Elevated TSH without any prior recorded history of hypothyroidism Procedures XRay, CTs & MRIs . X-RAY CHEST ONE VIEW, PORTABLE IMPRESSION: No acute disease. Dictated by: Oli Salgado M.D. on 06/12/2017 CT BRAIN WITHOUT CONTRAST IMPRESSION: No source of change in mental status is found. The study appears stable over time from February of last year. Dictated by: Mohinder Gragner M.D. on 06/12/2017 ECG 12 Lead EKG showed heart rate of 68, sinus rhythm and probable left atrial enlargement Brief History Ms. Chambers is a 57-year-old female with past medical history of hypertension , depression and hepatitis C degenerative disc disease (previously on methadone) , and alcoholic cirrhosis (sober 1 year) who presented to the ED via EMS after her called 911 secondary to behavioral abnormalities and mental status changes 1 day. Present during time of interview is patient's Dominick during interview. Per patient she states she knows that she has been doing a lot of strange things because she has been told that she has no specific recollection of these events. Per patient's and patient has not been taking her lactulose, he does not know why as she is the one who manages her medications at baseline. Over the last 30 hours she has had a number of behavioral episodes which have included microwaving silverware, grabbing clothing and going for the door as if to leave/move out of the home. She has been disoriented in her own home often confusing where doors and windows are. She has been seeing things that are not there and having conversations with people that were not in the room lasting as long as 20 minutes. Patient's states these are normal conversations and she is not having any difficulty with speech or thought process only that she is having these conversations with nonexistent people like her grandchildren. He does report occasional difficulty with patient in finding the right words and forming them appropriately. She is also been rearranging this furniture and has developed shaking and difficulty walking. Patient reports her daughter gave her a "sleeping pill" 4 days ago and she doesn't know what it was. She is followed by Dr. Norton of neurology. Patient states no specific complaints, denies headache /visual changes/dizziness, chest pain, abdominal pain, numbness or tingling in her extremities. She does state that she has been somewhat short of breath though not at time of interview. She also states that she has gained a lot of weight since quitting drinking one year ago approximately 50 pounds. In the ED CT scan showed no source of change in mental status is found. The study appears stable over time from February of last year. Chest x-ray showed no acute disease, EKG showed heart rate 68 sinus rhythm. Sodium 145, Ammonia 241 Hospital Course 57-year-old female with past medical history of hypertension, depression and hepatitis C degenerative disc disease (previously on methadone), and alcoholic cirrhosis (sober 1 year) admitted for acute mental status change # Acute toxic and metabolic encephalopathy present on admission, resolved - Suspected combination of hepatic encephalopathy (due to noncompliance with home medication lactulose) as well as acute UTI. Mainly hepatic encephalopathy -Patient had frequent bowel movements and mentation improved back to baseline. Patient oriented 3. - Continue lactulose. Explained to patient and to titrate dose to 2-3 bowel movements a day. - Antibiotics as below # Acute urinary tract infection. Present admission. Ongoing - Continue Ceftriaxone started on 06/12 - Urine culture Escherichia coli pansensitive # Noncompliance with medication. Present on admission. Ongoing - Patient's presented with multiple medication bottles many of which were empty, unknown patient taking too many or too little of medications. - Continue home venlafaxine -Continue home Topiramate and Cyclobenzaprine -Continue home Pramipexole -Continue home Gabapentin -Continue home Buspirone -Patient's mentation improved markedly with bowel movements hence hepatic encephalopathy is a likely etiology of mentation. # History of Tuberculosis, latent (See ID Consult 02/[address] Cordero, AF[employer] sputums negative, patient does not require isolation per ID) Treatment of latent TB was not recommended due to her ETOH Abuse - Consider initiation of latent TB treatment after this acute episode as patient has been sober 1 year # Acute Hypernatremia and hyperchloremia. Present on admission. Ongoing - Change IVF to D5W and followup repeat labs in AM # Elevated TSH without any prior recorded history of hypothyroidism -sick euthyroid - Recheck TSH in a few weeks with PCP and full thyroid panel pending Dispo: Discharged home. Exam Vital Signs (Last) Date Time Temp Pulse Resp B/P Pulse Ox O2 Delivery O2 Flow Rate FiO2 06/14/17 08:52 36.7 82 16 134/87 98 Room Air Exam General: Alert, Cooperative, No Acute Distress, oriented 3. Head: Normal Eyes: PERRLA, EOMI, Scleral Anicteric Nose: Mucous Membr Moist/Penelope Mouth: Mucous Membr Moist/Penelope Neck: Supple Chest & Lungs: Chest Wall Normal, Clear to auscultation & percussion Cardiovascular: Regular Rate/Rhythm Pulses: NL carotid, radial, femoral, DP, PT Abdomen: Non-tender, Non-distended, Normoactive bowel tones, Soft Extremities: No cyanosis/clubbing/edma bilat Skin: Other (no sig ulcer/rash) Neurological: Grossly Neurologically Intact, Cranial Nerves 2-12 Intact, Normal Speech. Mentation back to baseline per at bedside Test 06/12/17 09:30 06/12/17 12:10 06/12/17 20:30 06/13/17 05:33 Urine Color Straw (YELLOW) Urine Appearance Hazy (CLEAR,HAZY) Urine pH 7.0 (5.0-8.0) Urine Specific [place] 1.005 (1.003-1.035) Urine Protein Negativemg/dL (NEG,TRACE) Urine Glucose (UA) Negativemg/dL (NEGATIVE) Urine Ketones Negativemg/dL (NEGATIVE) Urine Occult Blood Negative (NEGATIVE) Urine Nitrite Positive (NEGATIVE) Urine Bilirubin Negative (NEGATIVE) Urine Urobilinogen Normalmg/dL (NORMAL) Urine Leukocyte Esterase Moderate (NEGATIVE) Urine RBC 0-2/hpf (0-2) Urine WBC 6-10/hpf (0-5) Urine Epithelial Cells Occasional/hpf (NONE-MOD) Urine Crystals None seen (NONE SEEN) Urine Bacteria Many/hpf (NONE-FEW) Urine Hyaline Casts None/lpf (NONE) Urine Granular Casts None seen (NONE SEEN) Urine Waxy Casts None seen (NONE SEEN) Urine Red Blood Cell Casts None seen (NONE SEEN) Urine White Blood Cell Casts None seen (NONE SEEN) Urine Mucus None seen (None Seen) Urine Trichomonas None seen (NONE SEEN) Urine Yeast None (NONE SEEN) Urinalysis Comment None Urine Culture Reflexed Indicated Neutrophils (%) (Auto) 48.7% (40-74) Lymphocytes (%) (Auto) 30.8% (14-46) Monocytes (%) (Auto) 11.9% (4-12) Eosinophils (%) (Auto) 7.0% (0-5) Basophils (%) (Auto) 1.0% (0-3) Total Bilirubin 1.0mg/dL (0.0-1.2) Aspartate Amino Transf (AST/SGOT) 28U/L (0-50) Alanine Aminotransferase (ALT/SGPT) 18U/L (0-32) Alkaline Phosphatase 95U/L (25-150) Troponin T 0.010ug/L (0.0-0.011) Total Protein 7.5g/dL (6.4-8.4) Albumin 4.4g/dL (3.4-5.0) Procalcitonin 0.03ng/mL (0.00-0.08) Vitamin B12 Level 418pg/mL (211-946) Folate 19.0ng/mL (>3.0) White Blood Count 7.8th/mm3 (3.8-10.1) Red Blood Count 4.29mil/mm3 (3.90-5.20) Hemoglobin 14.0g/dL (12.0-15.6) Hematocrit 40.8% (35.0-46.0) Mean Corpuscular Volume 95.1fL (81-100) Mean Corpuscular Hemoglobin 32.6pg (27.0-35.0) Mean Corpuscular Hemoglobin Concent 34.3% (32.0-37.0) Red Cell Distribution Width 13.7% (12.3-15.4) Platelet Count 145bil/L (150-400) Prothrombin Time 10.7sec (8.1-12.5) Prothromb Time International Ratio 1.00ratio Activated Partial Thromboplast Time 26.8sec (22.8-33.0) Magnesium Level 2.1mg/dL (1.6-2.6) Test 06/14/17 05:42 Sodium Level 139mEq/L (134-144) Potassium Level 3.5mEq/L (3.5-5.2) Chloride Level 105mEq/L (97-108) Carbon Dioxide Level 18mmol/L (18-29) Blood Urea Nitrogen 13mg/dL (6-24) Creatinine 0.68mg/dL (0.57-1.00) Estimat Glomerular Filtration Rate 127mL/min (>59) Glucose Level 117mg/dL (60-99) Calcium Level 9.3mg/dL (8.5-10.1) Ammonia 161ug/dL (18-53) Discharge Medications Discharge Medications Buspirone (Buspirone) 10 Mg Tablet 20 MG PO TID (Reported) Cephalexin (Cephalexin) 500 Mg Capsule 500 MG PO BID Prescribed by: POLINA VIZCAINO MD Cyclobenzaprine (Cyclobenzaprine) 10 Mg Tablet 10 MG PO TID (Reported) Gabapentin (Gabapentin) 600 Mg Tablet 1,200 MG PO TID (Reported) Lactulose (Lactulose) 10 Gm/15 Ml Solution 15-30 ML PO BID-TID (Reported) take just enough to produce 2-3 soft BMs daily Omeprazole (Omeprazole) 20 Mg Capsule.dr 20 MG PO DAILY (Reported) Pramipexole Dihydrochloride (Pramipexole Dihydrochloride) 0.25 Mg Tablet 0.125 MG PO HS (Reported) Propranolol HCl (Propranolol HCl) 20 Mg Tablet 40 MG PO BID Prescribed by: ROBERTO ROPER DO Topiramate (Topiramate) 25 Mg Tablet 25 MG PO HS (Reported) Venlafaxine (Venlafaxine) 75 Mg Tablet 75 MG PO DAILY (Reported) As needed Ibuprofen (Advil) 200 Mg Capsule 1-2 EACH PO TID PRN PRN For Pain (Reported) Followup Plan Disposition: Home Discharge Diet: Low fat, Low Sodium Discharge Activity: Limited until seen by PCP Patient Instructions You were hospitalized due to acute confusion. Encephalopathy seems to be mainly due to hepatic encephalopathy. UTI also contributing. Please take lactulose 15-30 ML PO twice daily to 3 times a daily ,take just enough to produce 2-3 soft bowel movements daily . Titrate the dose of lactulose to 2-3 bowel movements. Also take Keflex for 3 more days for UTI. Please follow-up with PCP in 1-2 weeks. Continue all other medications as usual.You also had mildly abnormal thyroid function test.TSH 5.9. Needs to be rechecked in 2-3 weeks with PCP. Follow-up Provider: Lam Bronson MD Follow-up with PCP in: 1 week Time spent 35 minutes counseling patient and on medication compliance and lactulose. answered questions copies to: Lam Bronson MD, Melaku MD Jun 14, 2017 16:33
[2017-06-15 02:09] LABS: Free Thyroxine Index 2.4 (1.2-4.9); Thyroxine (T4) 8.9 ug/dL (4.5-12.0)
== END 2017-06-14 12:32 | disposition home or self-care (01) | DRG 441 ==
LOC: SED 08:09 → OSC 14:59
PROVIDERS: ADMIT Internal Medicine; ATTEND Internal Medicine
DX: K72.90 Hepatic failure, unspecified without coma (principal); G93.41 Metabolic encephalopathy; E87.0 Hyperosmolality and hypernatremia; N39.0 Urinary tract infection, site not specified; Z86.11 Personal history of tuberculosis; Z91.19 Patient's noncompliance with other medical treatment and regimen; B19.20 Unspecified viral hepatitis C without hepatic coma; Z51.5 Encounter for palliative care